=== PATIENT | female | born 1975 | race American Indian/Alaskan Native ===

== ENCOUNTER 2016-06-26 11:40 | Emergency (ER) | payer BC ==
[2016-06-26] MEDS ORDERED: XYLOCAINE 1% 20 mL INFILTRATI ONE (15:40)
--- NOTE | 2016-06-26 16:04 | Emergency Department Report ---
ED Laceration HPI - HPI Chief Complaint: Wound/Laceration Stated Complaint: LFT FINGER LAC Time Seen by Provider: 06/26/16 15:55 Severity: mild Tetanus Status: Up to Date Laceration Symptoms: Yes Pain, No Foreign Body Sensation, No Numbness, No Weakness Other History: She is a 40-year-old female who presents to ED stay she was at work earlier when she almost fell and grabbed onto the door and cut her left fifth digit. Patient states minimal bleeding and pressure was applied to stop the bleeding. Patient denies loss of of consciousness injury to head, dizziness , headache, shortness of breath, chest pain, fever or any other problems ED Review of Systems ROS: Stated complaint: LFT FINGER LAC Other details as noted in HPI Constitutional: denies: chills, fever Eyes: denies: eye pain, eye discharge, vision change ENT: denies: ear pain, throat pain Respiratory: denies: cough, shortness of breath, wheezing Cardiovascular: denies: chest pain, palpitations Endocrine: no symptoms reported Gastrointestinal: denies: abdominal pain, nausea, vomiting, diarrhea Genitourinary: denies: urgency, dysuria, frequency, hematuria, discharge Musculoskeletal: denies: back pain, joint swelling, arthralgia Skin: denies: rash, lesions Neurological: denies: headache, weakness, numbness, paresthesias, confusion, abnormal gait Psychiatric: denies: anxiety, depression Hematological/Lymphatic: denies: easy bleeding, easy bruising ED Past Medical Hx - Past Medical History Previous Medical History?: No - Surgical History Additional Surgical History: hysterectomy - Social History Smoking Status: Never Smoker Substance Use Type: Alcohol - Medications Home Medications: Home Medications Medication Instructions Recorded Confirmed Last Taken Type Cephalexin [Keflex] 500 mg PO BID #10 capsule 06/26/16 Unknown Rx Ibuprofen [Motrin] 800 mg PO Q8HR PRN #30 tablet 06/26/16 Unknown Rx Laceration Physical Exam - Exam General: Vital signs noted. No distress. Alert and acting appropriately. Laceration Exam: Yes Normal Distal CMS, No Foreign Body, No Exposed Tendon, Vessel, or Nerve, No Tendon Injury ED Course Vital Signs 06/26/16 12:07 Temperature 98.5 F Pulse Rate 82 Respiratory 20 Rate Blood Pressure 158/106 O2 Sat by Pulse 100 Oximetry - Laceration /Wound Repair Left Anterior Medial Finger Wound Location: upper extremity Wound's Depth, Shape: superficial, irregular Wound Explored: no foreign body removed Irrigated w/ Saline (ccs): 50 Betadine Prep?: Yes Anesthesia: 1% Lidocaine Volume Anesthetic (ccs): 5 Wound Repaired With: sutures Suture Size/Type: 5:0, proline Number of Sutures: 7 Layer Closure?: No Sterile Dressing Applied?: Yes ED Medical Decision Making - Medical Decision Making 40-year-old female presents with uncomplicated finger laceration ED course: Patient received 60 mg of IM Toradol. The wound was prepped and draped in sterile fashion. Anesthesia was achieved with 5mL of 1% lidocaine. The wound was irrigated with 50cc NS and explored. There were no foreign bodies. The wound was reapproximated in 1 layer suing with three 5-0 monofilament sutures in the dermis with 6 interrupted sutures percutaneously. There was excellent reapproximation of the wound edges. The patient tolerated the procedure without complication Discussed patient to return in 10-12 days for suture removal Critical care attestation.: If time is entered above; I have spent that time in minutes in the direct care of this critically ill patient, excluding procedure time. ED Disposition Clinical Impression: Laceration of finger of left hand Qualifiers: Encounter type: initial encounter Qualified Code(s): S61.219A - Laceration without foreign body of unspecified finger without damage to nail, initial encounter Disposition: DISCHARGED TO HOME OR SELFCARE Is pt being admited?: No Does the pt Need Aspirin: No Condition: Stable Instructions: Suture Care (ED), Laceration (ED), Suture Removal (ED) Additional Instructions: Return for suture removal in 10-12 days Prescriptions: Cephalexin [Keflex] 500 mg PO BID #10 capsule Ibuprofen [Motrin] 800 mg PO Q8HR PRN #30 tablet PRN Reason: Pain Referrals: PRIMARY CARE, [Primary Care Provider] - 3-5 Days [facility] [Outside] - 3-5 Days [facility] [Outside] - 3-5 Days [facility] [Outside] - 3-5 Days [facility] [Outside] - 3-5 Days Forms: Accompanied Note, Work/School Release Form(ED)
--- NOTE | 2016-06-26 16:09 | XRay Report ---
FINAL REPORT PROCEDURE: XR FINGER(S) 2 LT TECHNIQUE: AP view of the left hand and cone-down oblique and lateral views of the 5th digit are submitted. HISTORY: finger laceration CUT ON METAL DOOR COMPARISON: No prior studies are available for comparison. FINDINGS: Soft tissue laceration of the 5th digit dorsal medially at the level of the PIP joint is seen. There is no evident fracture. There is no dislocation. There is no definite foreign body. Joint spaces are maintained. IMPRESSION: Soft tissue laceration of the 5th digit without evident fracture.
[2016-06-26] MEDS ORDERED: BOOSTRIX IM ONE (17:07)
[2016-06-26] MEDS ORDERED: TORADOL ONE (17:57)
[2016-06-26 18:55] VITALS: BP 135/87
== END 2016-06-26 18:54 | disposition home or self-care (01) ==
LOC: ED 11:40
DX: S61.213A Laceration without foreign body of left middle finger without damage to nail, initial encounter (principal); W45.8XXA Other foreign body or object entering through skin, initial encounter; Y93.89 Activity, other specified; Y99.9 Unspecified external cause status; Y92.89 Other specified places as the place of occurrence of the external cause
CPT/HCPCS: 12001; 73140; 90471; 90715; 99283; J1885